=== PATIENT | male | born 1955 | race Caucasian/White ===

== ENCOUNTER 2020-12-28 10:05 | Emergency (ER) | payer OTHER, SELFPAY ==
--- NOTE | 2020-12-28 10:09 | ED.GENADULT ---
HPI - General Adult General Chief complaint: Upper Respiratory Infection Stated complaint: ear pain/sore throat Time Seen by Provider: 12/28/20 10:09 Source: patient Mode of arrival: ambulatory Limitations: no limitations History of Present Illness HPI narrative: 65-year-old male patient presents to the [facility] with complaints of congestion to the left side as well as left ear pain for the past month. Patient states he was taking Suyapa back in November but stopped. Patient denies taking anything for his symptoms within the last month. Patient states his sore throat started about 3 days ago. Denies fevers, body aches or chills. Related Data Home Medications Medication Instructions Recorded Confirmed metoprolol tartrate 25 mg tablet 25 mg PO BID tablet 09/13/19 12/28/20 aspirin 81 mg tablet,delayed 162 mg PO DAILY tablet 08/20/20 12/28/20 release Allergies Allergy/AdvReac Type Severity Reaction Status Date / Time ciprofloxacin Allergy Unknown Unknown Verified 12/28/20 10:13 Review of Systems Review of Systems: CONSTITUTIONAL: Denies fever, chills, or sweats. EYES: Denies visual changes, redness, or discharge. ENT: Denies rhinorrhea, positive congestion, positive sore throat, positive left otalgia. CARDIOVASCULAR: Denies chest pain, palpitations, or edema. RESPIRATORY: Denies cough or dyspnea. GASTROINTESTINAL: Denies abdominal pain, nausea, vomiting, or diarrhea. GENITOURINARY: Denies dysuria or hematuria. SKIN: Denies rash or itching. MUSCULOSKELETAL: Denies back pain, joint pain, or myalgia. NEUROLOGIC: Denies headache, numbness, or weakness. PSYCHIATRIC: Denies anxiety or depression. [facility] Past Medical History Medical History (Updated 12/28/20 @ 10:29 by RACHEL Sky) Anxiety Benign hypertension Chronic low back pain without sciatica Coronary arteriosclerosis Hyperlipidemia LDL goal <100 Mild intermittent asthma without complication Type 2 diabetes mellitus without complication, without long-term current use of insulin Surgical History Surgical History H/O shoulder surgery left 2011 History of coronary artery bypass graft 01/2019 History of left inguinal hernia repair 2010 S/P repair of hydrocele 2010 Family History Family History Father Family history of coronary artery disease Social History Social History Smoking status: Never smoker Second hand tobacco smoke exposure: No Alcohol intake: current Alcohol use details: consumes 1 beer monthly Substance use: never Substance use type: does not use Additional living arrangements comments: Gender identity (if verbalized by the patient): Male Sexual Orientation (if Verbalized by the Patient): Straight or Heterosexual Comments At the time of my signature I agree with nursing past medical history, surgical, social, and family history. There is no relevant family history pertinent to the presenting complaint. Exam Narrative: GENERAL: Well-appearing, well-nourished, and in no acute distress. HEAD: Normocephalic, atraumatic. EYES: PERRLA and EOMI. ENT: Nares with erythema and edema noted bilaterally with the left nare swollen shut, no rhinorrhea or epistaxis. Mucous membranes moist. Posterior pharynx with slight erythema, no tonsil enlargement, no exudates or lesions present. There is fluid noted behind the left TM but no evidence of infection. NECK: Supple. No lymphadenopathy CHEST: Clear to auscultation. No respiratory distress. HEART: Regular rate and rhythm. No murmur heard. Normal peripheral pulses. ABDOMEN: Soft, nontender, nondistended, normal active bowel sounds. EXTREMITIES: Normal range of motion. No edema. SKIN: Warm, dry, no rash. NEURO: No focal deficits. Alert and oriented x3. Course Reevaluation(s) Reevaluation #1: Reevalu
[2020-12-28 10:14] VITALS: BP 131/75; PULSE 68; RESP 16; TEMP 36.4; O2SAT 98
== END 2020-12-28 10:45 | disposition home or self-care (01) ==
PROVIDERS: Emergency Provider Nurse Practitioner Family; PCP Family Medicine
DX: J00 Acute nasopharyngitis [common cold] (principal); J01.90 Acute sinusitis, unspecified; I25.10 Atherosclerotic heart disease of native coronary artery without angina pectoris; E78.5 Hyperlipidemia, unspecified; J45.909 Unspecified asthma, uncomplicated; E11.9 Type 2 diabetes mellitus without complications; Z79.4 Long term (current) use of insulin; Z79.82 Long term (current) use of aspirin
CPT/HCPCS: 87081; 87880; 99213; G0463

== ENCOUNTER 2021-03-26 08:15 | Outpatient (CLI) | payer OTHER, SELFPAY ==
--- NOTE | ~2021-03-26 | XR_ITS ---
XR sinus min 3V DATE: 03/26/2021 08:28 INDICATION: Nasal congestion TECHNIQUE: carolin Lanza, lateral and submental vertical views COMPARISON: None FINDINGS: The paranasal sinuses appear normally developed and aerated. The mastoid air cells appear a erated. The nasal septum appears midline. No unusual soft tissue thickening of the nasal turbinates is eviden t. Normal sella turcica. IMPRESSION: No significant abnormality Reviewed, dictated and finalized at location B. EATING MACHINE SET UP OPERATOR IMPRESSION: No significant abnormality
== END 2021-03-26 08:16 | disposition home or self-care (01) ==
LOC: ANHIMG 08:16
PROVIDERS: PCP Family Medicine; Visit Provider Family Medicine
DX: R09.81 Nasal congestion (principal)
CPT/HCPCS: 70220

== ENCOUNTER 2022-02-18 15:09 | Outpatient (CLI) | payer OTHER, SELFPAY ==
[2022-02-18 19:21] LABS: Hemoglobin A1C 6.7 % (<5.7)
[2022-02-18 19:42] LABS: Alanine Aminotransferase 30 U/L (6-50); Albumin Level 4.4 g/dL (3.5-5.1); Alkaline Phosphatase 54 U/L (38-126); Anion Gap 9 mmol/L (8-16); Aspartate Amino Transferase 41 U/L (17-59); Bilirubin,Total 0.5 mg/dL (0.2-1.3); Blood Urea Nitrogen 13 mg/dL (9-20); Calcium 9.1 mg/dL (8.4-10.2); Carbon Dioxide 33 mmol/L (22-30); Chloride 100 mmol/L (98-107); Estimated Glomerular Filt Rate > 60; Glucose 106 mg/dL (65-110); Potassium 4.4 mmol/L (3.4-5.0); Sodium 142 mmol/L (137-145)
== END 2022-02-18 15:10 | disposition home or self-care (01) ==
LOC: ANHGOSHLAB 15:11
PROVIDERS: PCP Family Medicine; Visit Provider Family Medicine
DX: E11.9 Type 2 diabetes mellitus without complications (principal); E78.5 Hyperlipidemia, unspecified; I10 Essential (primary) hypertension; Z79.899 Other long term (current) drug therapy
CPT/HCPCS: 36415; 80053; 83036

== ENCOUNTER → 2023-04-07 16:21 | Outpatient (CLI) | payer MEDICARE, SELFPAY ==
--- NOTE | ~2023-04-07 | XR_ITS ---
XR chest 2V DATE: 04/07/2023 16:32 INDICATION: Cough for 3 days. Acute upper respiratory infection. History of asthma. TECHNIQUE: PA and lateral views COMPARISON: None FINDINGS: Status post sternotomy/coronary artery bypass graft surgery. Normal heart size. Mild discoi d scar or less likely discoid atelectasis, left lower lung. No hilar or mediastinal mass lesion or ad enopathy is evident. No pleural effusion or pulmonary vascular congestion or pneumothorax. IMPRESSION: Status post CABG; no active cardiopulmonary disease Reviewed, dictated and finalized at location L. DARDS ANALYST
== END ==
PROVIDERS: PCP Family Medicine; Visit Provider Family Medicine
DX: J06.9 Acute upper respiratory infection, unspecified (principal); J45.909 Unspecified asthma, uncomplicated; Z95.1 Presence of aortocoronary bypass graft
CPT/HCPCS: 71046

== ENCOUNTER 2024-10-25 08:45 | Outpatient (RCR) | payer MEDICARE, SELFPAY ==
--- NOTE | 2024-10-10 11:08 | OPREHPOC ---
Outpatient Therapy Plan of Care This is a Multidisciplinary Plan of Care that may contain components documented by all disciplines (PT, OT, and ST.) PT Problem 1 PT Problem #1 Knowledge Deficit PT Goal 1 Goal / Goal Update 1. Patient to demonstrate independence with HEP for improved self-reliance of symptom management. Target Visit 4 PT Problem 2 PT Problem #2 Pain PT Goal 1 Goal / Goal Update 1. Patient to decrease subjective reports of pain to <3/10 for improved ADL tolerance. 2. Patient to report an improvement in radiating symptoms by 50% to increase ability to perform ADLs. Target Visit 8 PT Problem 3 PT Problem #3 Impaired Functional Mobility PT Goal 1 Goal / Goal Update 1. Pt will report ability to continue higher level activities required for his home remodeling without causing increased LLE pain. 2. Pt will demonstrate appropriate mechanics for lifting and carrying without lumbar compensation Target Visit 8
--- NOTE | 2024-10-10 11:08 | PTOPEVAL1 ---
Assessment and note entered by Jasson Meng PT Evaluation Information Assessment Status Evaluation Diagnosis Low back pain and LLE pain ICD-10 Condition Codes (PT) Pain in low back M54.50,Radiculopathy, lumbar region M54.16,Pain in left hip M25.552,Pain in left knee M25.562 Onset 6 weeks ago Subjective Information Pt states he felt his initial injury was to his back and left leg after lifting a heavy object for a large trash pickup. Pt notes he was taking pain medication and muscle relaxer to manage pain. Pt states when the medication wears off the pain intensity and tightness down his LLE becomes intense. Pt notes reaggravating his L leg over 05 of October weekend. Pt states he is remodeling his home and needs to be able to lift, carry and get on and off the floor with less pain. Reported Pain Level Pain Score 8: Self Report Assessment PT Clinical Summary Patient presents to physical therapy with a primary issue of LLE pain since about 6 weeks ago. Patient has signs consistent with nerve root compression such as radiuclar pain, numbness and decreased sensation. Patient appears to respond well to extension basis exercises. Patient demonstrates hip and core weakness, pain, decreased mobility, gait deficit, and decreased flexibility that limit their ability to perform activities of daily living and functional movements. Patient will benefit from skilled physical therapy to address the above listed deficits and return to prior level of function. Home exercise program instructed and written handout provided, exercises tolerated well with no adverse effects to note post-session. Patient was educated on importance of adherence to home exercise program. Patient was also educated on anatomy, prognosis, home modalities, and plan of care. Plan of Care Interventions Electrical Stimulation,Gait Training,Hot Pack/Cold Pack,Manual Therapy,Mechanical Traction,Neuro Re- education,Therapeutic Activities,Therapeutic Exercise,Self-Care/Home Management,Other PT Services Indicated Yes Treatment Frequency and 2x week 8 visits Duration These treatments will address the objective and functional deficits as defined above. The patient will be advanced safely and appropriately in order for the patient to progress towards his/her prior level of function. Additional exercises will be introduced and as well as a comprehensive home exercise program upon discharge, if needed, ?to ensure carryover of functional gains achieved in the clinic. This treatment plan has been reviewed and agreement upon by the patient.
--- NOTE | 2024-11-21 12:18 | PTOPDC ---
Assessment and note entered by Jasson Meng, PT Evaluation Information Assessment Status Discharge - Pt Not Present Diagnosis Low back pain and LLE pain ICD-10 Condition Codes (PT) Pain in low back M54.50,Radiculopathy, lumbar region M54.16,Pain in left hip M25.552,Pain in left knee M25.562 Onset 6 weeks ago Subjective Information Pt reports he has received an MRI and is speaking with surgeon about possible treatment options Assessment PT Clinical Summary Pt was called about continuing current POC. Pt reports he would like to be discharged from therapy at this time. Plan of Care PT Services Indicated No
== END 2024-11-21 13:24 | disposition home or self-care (01) ==
LOC: ANHGOSHPT 08:45
PROVIDERS: PCP Family Medicine; Visit Provider Family Medicine
DX: M54.50 Low back pain, unspecified (principal); M54.16 Radiculopathy, lumbar region; M25.552 Pain in left hip; M25.562 Pain in left knee; G89.29 Other chronic pain
CPT/HCPCS: 97014; 97110; 97140; 97161; G0283